=== PATIENT | female | born 1975 | race Caucasian/White ===

== ENCOUNTER 2023-05-23 21:01 | Outpatient (REF) | payer BC, SELFPAY ==
[2023-05-23 14:35] LABS: HCT 38.6 % (36.0-46.0); HGB 12.7 g/dL (11.2-15.7); MCH 29.5 pg (27.0-33.0); MCHC 32.9 % (32.0-36.0); MCV 90 fL (80-95); MPV 10.6 fL (8.0-11.0); Platelet Count 114 10^3/uL (130-400); RDW 12.8 % (11.7-14.6); RDW-SD 42.2 fL; WBC 3.97 10^3/uL (4.4-10.8)
[2023-05-23 14:43] LABS: INR 0.9 (0.9-1.1); Prothrombin Time 9.3 sec (9.3-11.0)
[2023-05-23 15:01] LABS: ALT 88 U/L (14-59); AST 57 U/L (15-37); Albumin 3.4 g/dL (3.4-5.0); Alkaline Phosphatase 121 U/L (46-116); Anion Gap 6.9 mmol/L (3-11); BUN 11 mg/dL (7-18); Bilirubin, Total 0.3 mg/dL (0.2-1.0); CO2 27.1 mmol/L (21.0-32.0); CREATININE 0.7 mg/dL (0.55-1.02); Calcium 8.5 mg/dL (8.5-10.1); Calculated LDL 42 mg/dL (<100); Chloride 106 mmol/L (98-107); Cholesterol 134 mg/dL (<200); Estimated GFR 107.95 (mL/min/1.73m2); Glucose 93 mg/dL (74-106); HDL Cholesterol 77 mg/dL (40-60); Potassium 3.8 mmol/L (3.5-5.1); Sodium 140 mmol/L (136-145); TSH (W/Ref FT4) 0.54 uIU/mL (0.36-3.74); Total Protein 6.5 g/dL (6.4-8.2); Triglyceride 77 mg/dL (<150)
[2023-05-23 15:02] LABS: Hemoglobin A1C 5.3 % (<5.7)
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
[2023-05-25 09:56] LABS: HIV-1/2 Ag & Ab Screen Negative (Negative)
[2023-05-26 11:06] LABS: HCV RNA Qualitative Detected (Undetected)
[2023-05-26 15:41] LABS: Hepatitis C Ab w Rflx HCV PCR Reactive (Negative)
[2023-05-26 15:46] LABS: Hepatitis B Surface Ag Negative (Negative)
[2023-05-26 15:48] LABS: HBs Antibody, Quant <3.1 mIU/mL (See Note); Hepatitis B Surface Ab Negative (See Note)
[2023-05-26 16:33] LABS: Hep B Core Antibody Negative (Negative)
[2023-05-26 17:03] LABS: Hep A Total Ab w Rflx IgM Negative (Negative)
[2023-05-26 22:30] LABS: HCV Genotype 1a (Undetected)
== END 2023-05-23 21:02 | disposition home or self-care (01) ==
LOC: NCHCN 21:01
PROVIDERS: PCP Registered Nurse; Visit Provider Registered Nurse
DX: Z00.00 Encounter for general adult medical examination without abnormal findings (principal); B19.20 Unspecified viral hepatitis C without hepatic coma; Z13.220 Encounter for screening for lipoid disorders; Z11.4 Encounter for screening for human immunodeficiency virus [HIV]; Z01.84 Encounter for antibody response examination; Z11.59 Encounter for screening for other viral diseases
CPT/HCPCS: 80053; 80061; 85027; 86704; 86706; 86709; 86803; 87340; 87389; 87522; 83036; 84443; 85610; 87521

== ENCOUNTER 2023-12-26 17:42 | Outpatient (REF) | payer BC, SELFPAY ==
[2023-12-26 21:26] LABS: HCT 41.5 % (36.0-46.0); HGB 13.5 g/dL (11.2-15.7); MCH 28.5 pg (27.0-33.0); MCHC 32.5 % (32.0-36.0); MCV 88 fL (80-95); MPV 10.7 fL (8.0-11.0); Platelet Count 123 10^3/uL (130-400); RBC 4.74 10^6/uL (3.93-5.22); RDW-SD 41.8 fL; WBC 4.95 10^3/uL (4.4-10.8)
[2023-12-26 21:42] LABS: ALT 111 U/L (14-59); AST 79 U/L (15-37); Albumin 3.5 g/dL (3.4-5.0); Alkaline Phosphatase 100 U/L (46-116); Anion Gap 6.2 mmol/L (3-11); BUN 8 mg/dL (7-18); Bilirubin, Total 0.4 mg/dL (0.2-1.0); CO2 30.8 mmol/L (21.0-32.0); CREATININE 0.9 mg/dL (0.55-1.02); Chloride 105 mmol/L (98-107); Estimated GFR 79.35 (mL/min/1.73m2); Glucose 115 mg/dL (74-106); Potassium 3.9 mmol/L (3.5-5.1); Sodium 142 mmol/L (136-145); Total Protein 6.6 g/dL (6.4-8.2)
[2023-12-28 09:26] LABS: HIV-1/2 Ag & Ab Screen Negative (Negative)
[2023-12-29 08:14] LABS: HBs Antibody, Quant <3.1 mIU/mL (See Note); Hepatitis B Surface Ab Negative (See Note)
[2023-12-29 09:14] LABS: Hep B Core Antibody Negative (Negative)
[2023-12-29 09:29] LABS: Hep A Total Ab w Rflx IgM Negative (Negative)
[2023-12-29 10:02] LABS: Hepatitis C Ab w Rflx HCV PCR Reactive (Negative)
[2023-12-29 11:49] LABS: HCV RNA Detection Quantitative 11300000 IU/mL (Undetected); HCV RNA Qualitative Detected (Undetected)
== END 2023-12-26 17:43 | disposition home or self-care (01) ==
LOC: NCHCN 17:42
PROVIDERS: PCP Registered Nurse; Visit Provider Family Medicine
DX: B19.20 Unspecified viral hepatitis C without hepatic coma (principal); Z11.4 Encounter for screening for human immunodeficiency virus [HIV]
CPT/HCPCS: 80053; 85027; 86704; 86706; 86709; 86803; 87389; 87522

== ENCOUNTER 2024-01-22 11:10 | Outpatient (REF) | payer BC, SELFPAY ==
[2024-01-26 17:35] LABS: HCV Genotype 1a (Undetected)
== END 2024-01-22 11:11 | disposition home or self-care (01) ==
LOC: NCHCN 11:10
PROVIDERS: PCP Registered Nurse; Visit Provider Family Medicine
DX: B19.20 Unspecified viral hepatitis C without hepatic coma (principal)
CPT/HCPCS: 87521